=== PATIENT | female | born 1945 | race Caucasian/White ===

== ENCOUNTER 2017-10-26 16:12 | Inpatient (IN) | payer MEDICARE ==
[2017-10-26] MEDS ORDERED: cloNIDine 0.1 MG TAB ONE (18:05)
[2017-10-26 18:10] LABS: #Lymphocytes 1.1 thou/uL (1.20-3.40); #Monocytes 0.8 thou/uL (0.11-0.59); #Neutrophils 6.6 thou/uL (1.40-6.50); %Basophils 0.4 % (0.0-1.0); %Eosinophils 0.5 % (0.0-10.0); %Lymphocytes 12.8 % (21.0-51.0); %Monocytes 9.5 % (0.0-10.0); %Neutrophils 76.7 % (42.0-75.0); Hemoglobin 11.1 g/dL (12.0-16.0); Mean Corpuscular HGB CONC 32.7 g/dL (32.0-36.0); Mean Corpuscular Hemoglobin 33.8 pg (27.0-31.0); Mean Platelet Volume 5.8 fL (7.4-10.4); Platelet Count 215 thou/uL (130-400); RBC Distribution Width 13.5 % (11.5-14.5); White Blood Cell (WBC) Count 8.7 thou/uL (4.8-10.8)
[2017-10-26 18:16] LABS: INR-International Normal Ratio 1.1; PTT 28.2 SEC (22.9-36.1); Prothrombin Time 13.9 SEC (12.0-14.7)
[2017-10-26 18:38] LABS: ALT (SGPT) 16 U/L (8-55); AST (SGOT) 19 U/L (5-34); Albumin 3.4 g/dL (3.4-4.8); Alkaline Phosphatase 71 U/L (40-150); Anion Gap 13 mmol/L (10-20); BUN (Urea Nitrogen) 22 mg/dL (9.8-20.1); Bilirubin, Total 0.8 mg/dL (0.2-1.2); Calc. Creatinine Clearance 0 mL/min (70-130); Calcium 9.6 mg/dL (7.8-10.44); Carbon Dioxide 27 mmol/L (23-31); Chloride 103 mmol/L (98-107); Estimated GFR-MDRD 75; Globulin 3.2 g/dL (2.4-3.5); Glucose 117 mg/dL (83-110); Protein, Total 6.6 g/dL (6.0-8.3); Sodium 140 mmol/L (136-145)
[2017-10-26] MEDS ORDERED: hydrALAZINE 10 MG TAB PO SCH (19:30)
[2017-10-26 23:58] VITALS: BMI 35.3
[2017-10-27] MEDS ORDERED: HYDROcodone/Acetaminophen 5/325 mg Tablet PO PRN (00:33)
[2017-10-27] MEDS: HYDROcodone/Acetaminophen 5/325 mg Tablet PO PRN ×2 (01:48→08:14)
[2017-10-27] MEDS ORDERED: Guaifenesin DM 100-10/5 ML UDCUP PO PRN (11:39)
[2017-10-27] MEDS ORDERED: Ondansetron HCl/PF 4 MG/2 ML Vial IVP PRN (11:39)
[2017-10-27] MEDS ORDERED: Hydrochlorothiazide 25 MG TAB PO SCH ×2 (11:45→13:30)
[2017-10-27 12:09] LABS: #Eosinphils 0.1 thou/uL (0.0-0.7); #Lymphocytes 1.6 thou/uL (1.20-3.40); #Monocytes 0.8 thou/uL (0.11-0.59); #Neutrophils 4.5 thou/uL (1.40-6.50); %Basophils 0.5 % (0.0-1.0); %Eosinophils 1.5 % (0.0-10.0); %Lymphocytes 23.1 % (21.0-51.0); %Monocytes 11.5 % (0.0-10.0); %Neutrophils 63.4 % (42.0-75.0); Hemoglobin 9.8 g/dL (12.0-16.0); Mean Corpuscular HGB CONC 33.4 g/dL (32.0-36.0); Mean Corpuscular Hemoglobin 34.4 pg (27.0-31.0); Mean Platelet Volume 5.9 fL (7.4-10.4); Platelet Count 170 thou/uL (130-400); RBC Distribution Width 13.4 % (11.5-14.5); Red Blood Cell (RBC) Count 2.85 mill/uL (4.20-5.40); White Blood Cell (WBC) Count 7.1 thou/uL (4.8-10.8)
--- NOTE | 2017-10-27 17:33 | HP ---
REASON FOR ADMISSION: Hypertensive urgency, epistaxis. HISTORY OF PRESENTING ILLNESS: The patient initially went to [facility] Emergency Room for bleeding from her nose. She checked her blood pressure, her systolic blood pressure was more than 180. On arrival in the ER, her systolic blood pressure shot up to 200. The ER physician could not stop the bleeding there and transferred the patient to Dr. Samuel Kamara's office. Dr. Kamara cauterized the bleeding vessels on the right naris, but could not stop the bleeding from the left and the patient was sent to emergency room for control of blood pressure. On arrival here, had systolic blood pressures of 180. She is currently placed on her home medications and her bleeding has since stabilized. No prior history of epistaxis, but she states she easily gets bruised. Currently, she is on aspirin 81 mg and no other anticoagulants. PAST MEDICAL AND SURGICAL HISTORY: Hypertension, history of CHF with systolic dysfunction per patient's history, hypothyroidism, dyslipidemia, cholecystectomy , hysterectomy, left total knee replacement, gout, osteoarthritis. CURRENT MEDICATIONS: The patient is on calcium with Vitamin D 1 tab daily, metoprolol extended release 100 mg daily, allopurinol 300 mg p.o. daily, trazodone 50 mg p.o. at bedtime, omeprazole 20 mg p.o. daily, Synthroid 100 mcg p.o. daily, hydrochlorothiazide 25 mg on alternate days, Celexa 10 mg p.o. daily , benazepril 5 mg daily, atorvastatin 20 mg p.o. at bedtime, aspirin 81 mg p.o. daily. ALLERGIES: LANSOPRAZOLE. PERSONAL HISTORY: Drinks one beer on a daily basis. Does not smoke or abuse drugs. She lives alone. FAMILY HISTORY: Mother at the age of 79 years. She has had history of OR. Father had stroke and at the age of 72 years. CODE STATUS: FULL. Power of composing machine operator/tender is her daughter, Ms. Melinda Roberts. REVIEW OF SYSTEMS: The following complete review of systems was negative, unless otherwise mentioned in the HPI or below: Constitutional: Weight loss or gain, ability to conduct usual activities. Skin: Rash, itching. Eyes: Double vision, pain. ENT/Mouth: Nose bleeding, neck stiffness, pain, tenderness. Cardiovascular: Palpitations, dyspnea on exertion, orthopnea. Respiratory: Shortness of breath, wheezing, cough, hemoptysis, fever or night sweats. Gastrointestinal: Poor appetite, abdominal pain, heartburn, nausea, vomiting, constipation, or diarrhea. Genitourinary: Urgency, frequency, dysuria, nocturia. Musculoskeletal: Pain, swelling. Neurologic/Psychiatric: Anxiety, depression. Allergy/Immunologic: Skin rash, bleeding tendency. PHYSICAL EXAMINATION: GENERAL: The patient is a 72-year-old female, who is currently not in any acute distress. Her right nostril was packed. VITAL SIGNS: Blood pressure 156/86, pulse 78 per minute, respiratory rate 16 per minute, temperature 98.1 degrees Fahrenheit, saturating 92% on room air. Her initial blood pressure was 180/107 on arrival. NECK: Supple, no elevated JVD. HEENT: Eyes: Extraocular muscles are intact. Pupils are reacting to light. Oral cavity: Mucous membranes are dry. No exudates or congestion. Dried crust of blood on the hard palate. No active bleeding seen in oropharynx. CARDIOVASCULAR SYSTEM: S1, S2 heard. Regular rhythm. RESPIRATORY SYSTEM: Air entry 1+ bilateral. Scattered rhonchi plus bilateral. ABDOMEN: Soft, bowel sounds heard. No tenderness, rigidity or guarding. EXTREMITIES: No peripheral edema or calf tenderness. VASCULAR: Peripheral pulses 1+ bilateral. No ischemic ulcerations or gangrene. The patient has multiple ecchymosis on both upper extremities. CENTRAL NERVOUS SYSTEM: No gross focal deficits seen. The patient is alert, awake, oriented well. PSYCHIATRIC: The patient's mood is euthymic. No hallucinations or delusions. LABORATORY DATA: H&H 9.8 and 29, platelet count is 170. MCV is 103. White count of 7. Initial H&H was 11 and 34 on arrival yesterday at 6:00 p.m. PT/ INR 13 and 1.1, and PTT 28, BUN and creatinine are 22 and 0.7. Potassium 3.0 yesterday. CLINICAL IMPRESSION AND PLAN: The patient will be admitted to medical floor for hypertensive urgency with uncontrollable epistaxis. We will consult Dr. Samuel Kamara, who was packed her right nostril prior to arrival here. We will continue her on home dose of metoprolol extended release, hydrochlorothiazide and benazepril as before. She will be on Augmentin due to her nasal packing. We will continue her Lipitor, Celexa, and trazodone as before. Please note her aspirin will be held for now. The patient also appears to have acute blood loss anemia from her epistaxis with hemoglobin dropping to 9.8 from 11.1. MTDD
[2017-10-27] MEDS: Amoxicillin/Potassium Clav 875 MG TAB PO SCH (20:07)
[2017-10-27] MEDS: Famotidine 20 MG TAB PO SCH (20:07)
[2017-10-27] MEDS: Docusate 100 MG CAP PO SCH (20:07)
[2017-10-27] MEDS ORDERED: traZODone HCl 50 MG TAB PO SCH (21:00)
[2017-10-27] MEDS ORDERED: Atorvastatin Calcium 20 MG TAB PO SCH (21:00)
[2017-10-27] MEDS ORDERED: ALPRAZolam 0.25 MG TAB PO PRN (21:36)
[2017-10-28] MEDS ORDERED: Oxymetazoline HCl 0.05% ( 15 ML ) NASAL SCH (01:00)
[2017-10-28] MEDS: Acetaminophen 325 MG TAB PO PRN ×2 (04:38→13:52)
[2017-10-28 05:39] LABS: #Eosinphils 0.1 thou/uL (0.0-0.7); #Lymphocytes 1.4 thou/uL (1.20-3.40); #Monocytes 1.1 thou/uL (0.11-0.59); #Neutrophils 6.8 thou/uL (1.40-6.50); %Basophils 0.4 % (0.0-1.0); %Eosinophils 1.1 % (0.0-10.0); %Lymphocytes 14.4 % (21.0-51.0); %Monocytes 11.3 % (0.0-10.0); %Neutrophils 72.8 % (42.0-75.0); Hemoglobin 9.1 g/dL (12.0-16.0); Mean Corpuscular HGB CONC 34.9 g/dL (32.0-36.0); Mean Corpuscular Hemoglobin 35.9 pg (27.0-31.0); Mean Platelet Volume 6.3 fL (7.4-10.4); Platelet Count 170 thou/uL (130-400); RBC Distribution Width 13.3 % (11.5-14.5); Red Blood Cell (RBC) Count 2.54 mill/uL (4.20-5.40); White Blood Cell (WBC) Count 9.4 thou/uL (4.8-10.8)
[2017-10-28] MEDS ORDERED: Levothyroxine Sodium 100 MCG TAB PO SCH (06:00)
[2017-10-28 06:23] LABS: Anion Gap 13 mmol/L (10-20); BUN (Urea Nitrogen) 22 mg/dL (9.8-20.1); Calc. Creatinine Clearance 108 mL/min (70-130); Calcium 8.6 mg/dL (7.8-10.44); Carbon Dioxide 26 mmol/L (23-31); Chloride 103 mmol/L (98-107); Estimated GFR-MDRD 73; Glucose 126 mg/dL (83-110); Potassium 3.1 mmol/L (3.5-5.1); Sodium 139 mmol/L (136-145)
[2017-10-28] MEDS ORDERED: traMADol HCl 50 MG TAB PO SCH (07:00)
[2017-10-28] MEDS: Famotidine 20 MG TAB PO SCH (08:34)
[2017-10-28] MEDS: Amoxicillin/Potassium Clav 875 MG TAB PO SCH (08:34)
[2017-10-28] MEDS: Docusate 100 MG CAP PO SCH (08:34)
[2017-10-28] MEDS ORDERED: Allopurinol 100 MG TAB PO SCH (09:00)
[2017-10-28] MEDS ORDERED: Citalopram 10 MG TAB PO SCH (09:00)
[2017-10-28 11:36] VITALS: BP 155/82; TEMP 98.6
--- NOTE | 2017-10-28 13:52 | CON ---
DATE OF CONSULTATION: 10/28/2017 CONSULTING PHYSICIAN: Dr. Clark. REASON FOR CONSULTATION: Epistaxis. HISTORY OF PRESENT ILLNESS: Ms. Munoz is a 72-year-old female who started having nosebleeds on Thursday, attempts to pack and cauterize it were temporarily successful. She presented to the emergency room on the with packing in place and hypertensive. The hypertension was hard to control and she was admitted to the hospital for further treatment and evaluation. Her blood pressure has been under good control, but tonight she started having profuse bleeding again on a fairly frequent basis and I was asked to reevaluate her. She had been taking aspirin up until Thursday, but has not had any aspirin since then. She does have a history of congestive heart failure as well as hypertension. No prior history of any epistaxis. She has not had any trauma or infections. The packing is in the left side of the nose. This reportedly had cauterization of epistaxis on the right side in the past. Please see her admission history and physical and ER note for further details of her past medical history and review of systems. PHYSICAL EXAMINATION: GENERAL: Elderly white female, in moderate distress. HEAD: Normocephalic, atraumatic. EYES: Pupils are equal, round, and reactive to light. Extraocular movements are intact. EARS: Tympanic membranes intact, mobile, clear. NOSE: Shows packing in the left side with minimal bleeding from the anterior nares, right side looked open and clear. Septum was relatively straight. ORAL CAVITY AND OROPHARYNX: Does show some clot and little bit of bleeding in the back of the throat. NECK: No significant adenopathy or mass. Thyroid is palpably normal. Due to the fact that she has been having persistent bleeding in spite of the packing, I opted to remove the pack. The pack was a 10-cm pack and was removed without difficulty. Initially it was significant bleeding. There was some clotting up superiorly. I did not see active bleeding at this time. Suctioned clot out the back of her throat and she has some clot go down her throat. Opted to repack the nose, feeling is that since she had the one pack in and continued to bleed even though it is long enough, I think it is a superior bleed. I put a Dakota pack coated with bacitracin ointment and placed it up medial to the middle turbinate and I put another 10-cm pack into the rest of the nasal cavity. Inflated with saline, she started bleeding again mostly anteriorly. I took another [place] pack and placed it superiorly and anterior to the previous pack and this inflated with saline and this seemed to control the bleeding. Right side did not show any bleeding at all, nothing coming around the pack. Oral cavity and oropharynx showed blood staining. No active bleeding was noted. After watching it for several minutes, it appeared to be adequately controlled. She was given some pain medicine. IMPRESSION: Left-sided posterior epistaxis appears to be coming from the area of the anterior ethmoid. Packing is in place and at this point in time, appears to be controlling it. We will have Dr. Kamara follow it up tomorrow and decide whether or not to leave the packing in or consider taking to the OR for control of the bleeding. Continue off the aspirin and continue to keep her blood pressure under control, put her on some Augmentin to try and prevent any infection. LIVAN
--- NOTE | 2017-10-28 17:14 | DIS ---
DATE OF ADMISSION: 10/26/2017 DATE OF DISCHARGE: 10/28/2017 DISCHARGE DIAGNOSES: 1. Acute epistaxis, multifactorial, improved. 2. Hypertensive urgency, improved. 3. Hypokalemia, mild. 4. Acute blood loss anemia secondarily to #1. CONSULTATIONS: Dr. Samuel Kamara with ENT service. PERTINENT LAB AND X-RAY FINDINGS: Potassium ranged between 3.0-3.1. LFTs within normal limits. CBC showed a white blood cell count ranging between 7.1-9.4, hemoglobin ranged between 9.1-11.1, platele t count ranged between 170-215. PT 13.9, INR 1.1, PTT 28.2. HOSPITAL COURSE: Patient was admitted to the medical floor after initially presenting with acute epi staxis status post nasal packing placement and cauterization. The patient had intermittent epistaxis throughout the hospital course requiring removal and subsequent repacking of the nares. The patient underwent serial H and H monitoring showing overall acute blood loss anemia; however, patient did no t require packed red blood cell transfusions. The patient was also noted with labile hypertension an d resumed on her regular outpatient blood pressure regimen with overall stabilization of blood pressu re trend. The patient was discontinued on aspirin therapy with recommendations to discontinue for 2 weeks after discharge. Overall, the patient did remain clinically stable throughout the hospital cou rse, tolerating regular oral intake with stable vital sign at the time of discharge. The patient stuart dy for discharge on 10/28/2017. DISCHARGE MEDICATIONS: 1. Augmentin 500 mg 1 tab p.o. t.i.d. x7 days. 2. Allopurinol 100 mg 1 tab p.o. daily. 3. Ultram 50 mg 1 tab p.o. q.6 hours p.r.n. pain. 4. Lipitor 20 mg one tablet p.o. at bedtime. 5. Benazepril 5 mg 1 tablet p.o. daily. 6. Calcium carbonate 1 tablet p.o. b.i.d. 7. Celexa 10 mg 1 tab p.o. daily. 8. Hydrochlorothiazide 25 mg p.o. on Thursday, Thursday, and . 9. Levothyroxine 100 mcg p.o. daily. 10. Metoprolol XL 25 mg p.o. q.a.m. and 100 mg p.o. at bedtime. 11. Omeprazole 20 mg 1 tab p.o. daily. 12. Trazodone 50 mg p.o. at bedtime. 13. Enteric coated aspirin 81 mg, hold until 11/12/2017. FOLLOWUP: Patient will follow up with Dr. Samuel Kamara with ENT service on 10/30/2017. The patient may follow up with her primary care provider in [place], [place] after discharge. CONDITION ON DISCHARGE: Stable. ACTIVITY: Ad devonte. DIET: Heart healthy. CODE STATUS: FULL. DISPOSITION: Home, 10/28/2017.
[2017-10-29] MEDS ORDERED: Hydrochlorothiazide 25 MG TAB PO SCH (09:00)
== END 2017-10-28 14:30 | disposition home health service (06) | DRG 151 ==
LOC: ERS 16:12 → T4-A 21:20
PROVIDERS: ADMIT Family Medicine; ATTEND Family Medicine
PROC: 2Y41X5Z Packing of Nasal Region using Packing Material (ICD-10-PCS; principal; 2017-10-28)
DX: R04.0 Epistaxis (principal); I11.0 Hypertensive heart disease with heart failure; D62 Acute posthemorrhagic anemia; I50.22 Chronic systolic (congestive) heart failure; I16.0 Hypertensive urgency; E87.6 Hypokalemia; Z79.82 Long term (current) use of aspirin; E03.9 Hypothyroidism, unspecified; M10.9 Gout, unspecified; E78.5 Hyperlipidemia, unspecified
CPT/HCPCS: 36415; 80048; 80053; 85025; 85610; 85730; 99284